=== PATIENT | female | born 1960 | race Caucasian/White ===

== ENCOUNTER → 2023-09-07 07:42 | Outpatient (CLI) | payer OTHER, SELFPAY ==
--- NOTE | 2023-09-07 19:19 | DI.NM.S_ITS ---
DATE OF SERVICE: 09/07/2023 PROCEDURE: Exercise stress test. INDICATIONS: Fatigue, palpitation, a strong family history of coronary artery disease. CARDIAC STRESS: Patient underwent exercise stress test under the supervision of an attending staff. The patient walked on Roberto protocol for 6 minutes and 10 seconds, achieved maximum heart rate of 167, which was 105% of target heart rate. Resting blood pressure 140/80 and peak blood pressure 210/100, suggestive of hypertensive blood pressure response. Achieved 7 METs of workload. PEDRO positive 8%. No anginal symptoms. Aiken fatigue. Baseline rhythm was sinus. During stress, there were some nonspecific ST-T changes without any typical ischemic changes. Intermittent PVCs without any ventricular tachycardia. CONCLUSION: Exercise stress test did not show typical ischemic changes. There were some nonspecific ST-T changes during stress. Diminished exercise tolerance. PEDRO positive at 8%. Hypertensive blood pressure response. Peak blood pressure 210/100. Enhanced chronotropic response. Recovery was normal. No anginal symptoms. Intermittent PVCs without any ventricular tachycardia. Correlate clinically. Makenna Tan - MANSI/shadi/ doc#: [id number]/job#: [id number] dd: 09/07/2023 13:16:00 dt: 09/07/2023 19:07:00 DICTATING MD/COPIES TO: Cristobal Smith MD COPIES MNE: KATERINE;
== END ==
PROVIDERS: PCP Family Medicine; Referring Provider Family Medicine; Visit Provider Family Medicine
DX: R07.89 Other chest pain (principal); R00.2 Palpitations; Z82.49 Family history of ischemic heart disease and other diseases of the circulatory system
CPT/HCPCS: 93017

== ENCOUNTER → 2023-12-20 09:08 | Outpatient (CLI) | payer OTHER, SELFPAY ==
--- NOTE | 2023-12-20 | DI.RAD.S_ITS ---
PROCEDURE: XR CHEST 2V INDICATIONS: Acute bronchitis, unspecified TECHNIQUE: 2 views of the chest were acquired. COMPARISON: [facility], , CHEST 2 VIEW, 01/16/2013, 16:48. FINDINGS: Surgical changes and devices: None. Lungs and pleura: Lungs are clear. No pleural effusions or pneumothorax. Mediastinum: Mediastinal contours are normal. Heart size is normal. Bones and chest wall: No suspicious bony abnormalities. Soft tissues appear unremarkable. IMPRESSION: No acute cardiopulmonary abnormality is seen. Dictated by: Tony Koroma M.D. on 12/20/2023 at 11:53 Approved by: Tony Koroma M.D. on 12/20/2023 at 11:54
--- NOTE | 2023-12-20 09:09 | DI.US.S_ITS ---
PROCEDURE: US ABDOMEN LIMITED INDICATIONS: OTHER SPECIFIED DISEASE OF LIVER TECHNIQUE: Real-time focused scanning was performed of the abdomen, with image documentation. COMPARISON: [facility], CT, ABDOMEN/PELVIS WITH CONTRAST, 06/26/2012, 10:47. [facility], US, ABDOMEN COMPLETE, 03/23/2017, 7:45. FINDINGS: Borderline hepatomegaly at 19 centimeters. A large septated right lobe cyst measures up to 12 x 13 x 11 centimeters, stable to slightly increased compared to 2017. Gallbladder is unremarkable. CBD measures 4 millimeters. Pancreatic head is unremarkable. The tail is not well seen. IMPRESSION: Large right lobe septated cyst measures up to 12 x 13 centimeters, slightly larger than prior imaging in 2017, seen dating back to 2011 CT. No high risk sonographic features. This is usually benign. A rare differential consideration is an indolent cystadenoma. Dictated by: Aquiles Saleem M.D. on 12/20/2023 at 10:23 Approved by: Aquiles Saleem M.D. on 12/20/2023 at 10:25
== END ==
PROVIDERS: PCP Family Medicine; Referring Provider Family Medicine; Visit Provider Family Medicine
DX: J20.9 Acute bronchitis, unspecified (principal); K76.89 Other specified diseases of liver
CPT/HCPCS: 71046; 76705